=== PATIENT | male | born 1975 | race African-American/Black ===

== ENCOUNTER 2017-02-02 16:52 | Emergency (ER) | payer BC ==
[~2017-02-02] VITALS: Ht 180.3 cm; Wt 63.5 kg
[2017-02-02] MEDS ORDERED: HYDROCODONE-AP1 EAC6 PO (20:06)
[2017-02-02] MEDS ORDERED: KEFLEX500 MG PO (20:06)
[2017-02-02] MEDS ORDERED: TRIPLE ANTIB28.35 GM TOP (20:42)
[2017-02-02 20:43] VITALS: BP 161/111
== END 2017-02-02 20:47 | disposition home or self-care (01) ==
LOC: ER 16:52
DX: S62.601A Fracture of unspecified phalanx of left index finger, initial encounter for closed fracture (principal); T31.0 Burns involving less than 10% of body surface; T22.10XA Burn of first degree of shoulder and upper limb, except wrist and hand, unspecified site, initial encounter; J45.909 Unspecified asthma, uncomplicated; W45.8XXA Other foreign body or object entering through skin, initial encounter; Y93.89 Activity, other specified; Y92.89 Other specified places as the place of occurrence of the external cause; Y99.8 Other external cause status

== ENCOUNTER 2017-02-15 04:11 | Emergency (ER) | payer BC ==
[~2017-02-15] VITALS: Ht 180.3 cm; Wt 61.2 kg
[~2017-02-15 04:11] MED LIST: HYDROCODONE-AP1 EAC6 PO; KEFLEX500 MG PO; TRIPLE ANTIB28.35 GM TOP
[2017-02-15 04:23] VITALS: BP 150/108
== END 2017-02-15 04:50 | disposition home or self-care (01) ==
LOC: ER 04:11
DX: S61.211D Laceration without foreign body of left index finger without damage to nail, subsequent encounter (principal); J45.909 Unspecified asthma, uncomplicated; F17.210 Nicotine dependence, cigarettes, uncomplicated; F10.99 Alcohol use, unspecified with unspecified alcohol-induced disorder; X58.XXXD Exposure to other specified factors, subsequent encounter

== ENCOUNTER 2019-11-15 00:31 | Emergency (ER) | payer BC ==
[~2019-11-15] VITALS: Ht 180.3 cm; Wt 61.2 kg
[2019-11-15 02:42] LABS: ABSOLUTE NEUTROPHILS 9.9 thou/uL (1.4-8.2); BASOPHILS 0.5 % (0.0-2.0); HEMATOCRIT 34.9 % (42.0-52.0); HEMOGLOBIN 11.5 gm/dL (14.0-18.0); LYMPHOCYTES 6.6 % (24.0-44.0); MCH 32.2 pg (26.0-34.0); MCHC 32.9 g/dL (28.0-37.0); MCV 97.8 fL (80.0-100.0); MONOCYTES 7.7 % (1.0-8.0); PLATELET COUNT 239 thou/uL (150-400); POLYS 85.2 % (36.0-66.0); RBC 3.56 mil/uL (4.50-6.00); RDW 15.2 % (10.5-14.5); WBC 11.6 thou/uL (4.0-11.0)
[2019-11-15] MEDS ORDERED: PERCOCET 5-3251 EACH PO (02:42)
[2019-11-15 02:51] LABS: CALCIUM 8.3 mg/dL (8.5-10.1); CREATININE 0.6 mg/dL (0.7-1.3); POTASSIUM 3.3 mmol/L (3.5-5.1)
[2019-11-15 02:54] LABS: PROTIME 10.7 Seconds (9.3-11.4)
[2019-11-15 03:13] VITALS: BP 161/103
== END 2019-11-15 03:14 | disposition home or self-care (01) ==
LOC: ER 00:31
PROVIDERS: Emergency Medicine
DX: S82.101A Unspecified fracture of upper end of right tibia, initial encounter for closed fracture (principal); S82.831A Other fracture of upper and lower end of right fibula, initial encounter for closed fracture; J45.909 Unspecified asthma, uncomplicated; F17.210 Nicotine dependence, cigarettes, uncomplicated; Z79.2 Long term (current) use of antibiotics; Z79.899 Other long term (current) drug therapy; Z20.828 Contact with and (suspected) exposure to other viral communicable diseases; X50.1XXA Overexertion from prolonged static or awkward postures, initial encounter; Y93.67 Activity, basketball; Y92.89 Other specified places as the place of occurrence of the external cause; Y99.8 Other external cause status